=== PATIENT | male | born 1985 | race Caucasian/White ===

== ENCOUNTER 2019-02-26 12:13 | Inpatient (IN) | payer OTHER ==
[~2019-02-26] VITALS: Ht 182.9 cm; Wt 79.2 kg
[2019-02-26 12:46] LABS: BASOPHILS ABSOLUTE AUTO 0.03 K/mm3 (0.00-0.23); BASOPHILS PERCENT AUTO 0 % (0-2); EOSINOPHILS PERCENT AUTO 1 % (0-6); Hematocrit 44.9 % (37.0-53.0); Hemoglobin 15.2 g/dL (13.5-17.5); IMMATURE GRAN ABSOLUTE AUTO 0.02 K/mm3 (0.00-0.10); IMMATURE GRAN PERCENT AUTO 0 % (0-1); LYMPHOCYTES ABSOLUTE AUTO 2.33 K/mm3 (0.84-5.20); LYMPHOCYTES PERCENT AUTO 28 % (21-46); MONOCYTES ABSOLUTE AUTO 0.52 K/mm3 (0.16-1.47); MONOCYTES PERCENT AUTO 6 % (4-13); Mean Corpuscular HGB 30.5 pg (26.0-34.0); Mean Corpuscular HGB Conc 33.9 g/dL (31.5-36.5); Mean Corpuscular Volume 90 fL (80-100); NEUTROPHILS ABSOLUTE AUTO 5.21 K/mm3 (1.96-9.15); NEUTROPHILS PERCENT AUTO 64 % (41-73); Platelet Count 231 K/mm3 (150-400); RDW Coefficient Variation 12.1 % (11.7-14.2); RDW Standard Deviation 39.7 fL (35.1-46.3); Red Blood Cell Count 4.98 M/mm3 (4.30-5.90); White Blood Cell Count 8.21 K/mm3 (4.00-11.30)
[2019-02-26 13:01] LABS: Alanine Aminotransfer (ALT/SGP 20 U/L (12-78); Albumin, Blood 3.6 g/dL (3.4-5.0); Albumin/Globulin Ratio 1.1 (0.8-1.8); Alk Phos 120 U/L (50-136); Anion Gap 9 mmol/L (6-16); Aspartate Aminotrans (AST/SGOT 24 U/L (12-37); Bilirubin, Total 0.4 mg/dL (0.1-1.0); Blood Urea Nitrogen 18 mg/dL (8-24); Bun/Creatinine Ratio 21.2 (12.0-20.0); CO2, Blood 23 mmol/L (21-32); Calcium, Blood 8.2 mg/dL (8.5-10.1); Chloride, Blood 110 mmol/L (98-108); Creatinine, Blood 0.85 mg/dL (0.60-1.20); Globulin, Blood 3.2 g/dL (2.2-4.0); Glomerular Filtration Rate >60 (60-); Glucose, Blood 210 mg/dL (70-99); Potassium, Blood 4.2 mmol/L (3.5-5.5); Sodium, Blood 142 mmol/L (136-145); Total Protein, Blood 6.8 g/dL (6.4-8.2)
[2019-02-26 13:18] LABS: Troponin I 0.764 ng/mL (0.000-0.040)
--- NOTE | 2019-02-26 16:41 | NUR ---
ADMISSION / SHIFT SUMMARY: REPORT RECEIVED AT BEDSIDE FROM SHANKAR Mcdowell, [facility] RN. PT ARRIVED TO PCU-09 AT APPROX 1515. ON ARRIVAL, HE IS DROWSY. AWAKENS ONLY BRIEFLY TO VERBAL STIMULI BEFORE FALLING BACK ASLEEP QUICKLY. PER REPORT, THE PT RECEIVED 2 STENTS TO THE LAD & 1 STENT TO THE CIRC. REGARDING MEDS, HE RECEIVED: 4 MG VERSED, 100 MCG FENTANYL, 600 MG PLAVIX, 325 MG ASA, 600 ML NS IVF, 10,000 UNITS HEPARIN, 8.4 ML BOLUS OF AGGRASTAT & AGGRASTAT CURRENTLY INFUSING AT RATE OF 15ML/HR UNTIL BOTTLE IS COMPLETED. DRIP TO BE D/C'd AT THAT TIME. TR BAND IN PLACE TO R RADIAL ACCESS SITE & INFLATED W/ 11 CC AIR. BAND PLACED AT 1455. IF THE AREA REMAINS FREE OF BLEEDING, BRUISING OR HEMATOMA FORMATION, TR BAND DEFLATION MAY BEGIN AT APPROX 1700. CAP REFILL <3 SEC, PT DENIES N/T. VSS. PT IS NOW MORE ALERT, HAS VOIDED W/O DIFFICULTY USING URINAL. WRIST PRECAUTIONS HAVE BEEN DISCUSSED & THE PT VERBALIZES UNDERSTANDING OF THIS. HE DENIES PAIN OR DISCOMFORT AT THIS TIME & IS A&O x4. WILL CONTINUE TO MONITOR & REPORT OFF TO ONCOMING RN.
--- NOTE | 2019-02-27 | NUR ---
TR BAND REMOVED AND TEGADERM PLACED. SMALL HARD SPOT NOTED ON INSIDE OF WRIST OPPOSITE OF ANGIO SITE. CAP REFIL <3 SEC. PT DENIES PAIN TO AREA. EXTREMITY ELEVATED ON PILLOW. WILL MONITOR.
[2019-02-27 04:25] LABS: BASOPHILS ABSOLUTE AUTO 0.02 K/mm3 (0.00-0.23); BASOPHILS PERCENT AUTO 0 % (0-2); EOSINOPHILS ABSOLUTE AUTO 0.04 K/mm3 (0.00-0.68); EOSINOPHILS PERCENT AUTO 0 % (0-6); Hematocrit 43.3 % (37.0-53.0); Hemoglobin 14.3 g/dL (13.5-17.5); IMMATURE GRAN ABSOLUTE AUTO 0.04 K/mm3 (0.00-0.10); IMMATURE GRAN PERCENT AUTO 0 % (0-1); LYMPHOCYTES ABSOLUTE AUTO 2.52 K/mm3 (0.84-5.20); LYMPHOCYTES PERCENT AUTO 19 % (21-46); MONOCYTES PERCENT AUTO 8 % (4-13); Mean Corpuscular HGB 30.1 pg (26.0-34.0); Mean Corpuscular Volume 91 fL (80-100); Mean Platelet Volume 10.2 fL (9.1-12.4); NEUTROPHILS ABSOLUTE AUTO 9.71 K/mm3 (1.96-9.15); NEUTROPHILS PERCENT AUTO 72 % (41-73); Platelet Count 192 K/mm3 (150-400); RDW Coefficient Variation 12.3 % (11.7-14.2); RDW Standard Deviation 41.1 fL (35.1-46.3); Red Blood Cell Count 4.75 M/mm3 (4.30-5.90); White Blood Cell Count 13.43 K/mm3 (4.00-11.30)
[2019-02-27 04:32] LABS: Anion Gap 8 mmol/L (6-16); Blood Urea Nitrogen 14 mg/dL (8-24); Bun/Creatinine Ratio 16.9 (12.0-20.0); CO2, Blood 26 mmol/L (21-32); Calcium, Blood 8.1 mg/dL (8.5-10.1); Chloride, Blood 106 mmol/L (98-108); Creatinine, Blood 0.83 mg/dL (0.60-1.20); Glomerular Filtration Rate >60 (60-); Glucose, Blood 97 mg/dL (70-99); Sodium, Blood 140 mmol/L (136-145)
--- NOTE | 2019-02-27 05:27 | NUR ---
SHIFT SUMMARY PT SLEEPING IN ROOM COMFORTABLY AT THIS TIME. NO ACUTE CHANGES T/O SHIFT. TR BAND FULLY DELFATED AND REMOVED, WINDOW DRESSING IN PLACE, SITE WNL, NO HEMATOMAS NOTED. CAP REFIL <3 SECS. PT DENIES PAIN TO SITE. RESP EVEN UNLABORED ON RA SATS >95%. DENIES CP. VSS. DENIES OTHER NEEDS. PT HAS BEEN LETHARGIC T/O SHIFT SLEEPING WELL, BUT WAKES EASILY TO VERBAL. CALL LIGHT IN REACH, BED ALARM PLACED DUE TO LETHARGY.
[2019-02-27] MEDS ORDERED: LO-DOSE ASPIRIN81 MG PO (09:40)
[2019-02-27] MEDS ORDERED: ATOR40TA PO (09:41)
[2019-02-27] MEDS ORDERED: CLOP75 PO (09:42)
[2019-02-27] MEDS ORDERED: LISI5 PO (09:43)
[2019-02-27] MEDS ORDERED: METO25ER PO (09:44)
--- NOTE | 2019-02-27 11:31 | NUR ---
DISCHARGE HOME PT DISCHARGE ORDER RECEIVED. BILTERAL IV REMOVED WITH CANNULA INTACT. PT FOUND THE TAPE REMOVEL VERY PAINFUL. PRESSURE DRESSINGS APPLIED WITH COBAN INSTEAD OF TAPE. TALKED WITH PT AND HID BROTHER ABOUT STENT CARE, DIET, METH USE AND FOLLOW UP. TALKED WITH PT ABOUT FINDING A PCP. HE STATED THAT [facility] IS [facility] BUT HAS [facility] ESTABLISHED WITH THEM. REMCOMMENDED TOMORROW [facility] AND START [facility] PROCESS. PERSCRIPTIONS FAXED TO [facility] PER PT REQUEST. CONTINUE POT.
== END 2019-02-27 11:24 | disposition home or self-care (01) | DRG 249 ==
LOC: ER 12:13 → ICUW 13:48 → PCU 15:12
PROVIDERS: Physician Assistant; ADMIT Internal Medicine Interventional Cardiology
PROC: 4A023N7 Measurement of Cardiac Sampling and Pressure, Left Heart, Percutaneous Approach (ICD-10-PCS; principal; 2019-02-26)
PROC: 02713FZ Dilation of Coronary Artery, Two Arteries with Three Intraluminal Devices, Percutaneous Approach (ICD-10-PCS; 2019-02-26)
PROC: B211YZZ Fluoroscopy of Multiple Coronary Arteries using Other Contrast (ICD-10-PCS; 2019-02-26)
DX: I21.09 ST elevation (STEMI) myocardial infarction involving other coronary artery of anterior wall (principal); I25.82 Chronic total occlusion of coronary artery; F17.210 Nicotine dependence, cigarettes, uncomplicated; Z82.49 Family history of ischemic heart disease and other diseases of the circulatory system
CPT/HCPCS: 36415; 80048; 80053; 84484; 85025; 85347; 86850; 86900; 86901; 93005; 93010; 93454; 96374; 99152; 99153; 99285-25; C1725; C1769; C1874; C1887; C1894; C8929; C9600; C9606; J1170; J1644; J1650; J2250; J3010; J3246; J7030; Q9957; Q9967

== ENCOUNTER 2020-03-04 01:22 | Observation (INO) | payer OTHER ==
[~2020-03-04] VITALS: Ht 185.4 cm; Wt 87.5 kg
[~2020-03-04 01:22] MED LIST: ASPIR 8181 M1 PO; ATOR40TA PO; CLOP75 PO; LISI5 PO; METO25ER PO
[2020-03-04 03:18] LABS: BASOPHILS ABSOLUTE AUTO 0.04 K/mm3 (0.00-0.23); BASOPHILS PERCENT AUTO 0 % (0-2); EOSINOPHILS ABSOLUTE AUTO 0.02 K/mm3 (0.00-0.68); EOSINOPHILS PERCENT AUTO 0 % (0-6); Hematocrit 49.7 % (37.0-53.0); Hemoglobin 16.9 g/dL (13.5-17.5); IMMATURE GRAN ABSOLUTE AUTO 0.03 K/mm3 (0.00-0.10); IMMATURE GRAN PERCENT AUTO 0 % (0-1); LYMPHOCYTES ABSOLUTE AUTO 3.07 K/mm3 (0.84-5.20); LYMPHOCYTES PERCENT AUTO 24 % (21-46); MONOCYTES ABSOLUTE AUTO 0.83 K/mm3 (0.16-1.47); MONOCYTES PERCENT AUTO 7 % (4-13); Mean Corpuscular HGB 29.8 pg (26.0-34.0); Mean Corpuscular Volume 88 fL (80-100); Mean Platelet Volume 9.9 fL (9.1-12.4); NEUTROPHILS ABSOLUTE AUTO 8.87 K/mm3 (1.96-9.15); NEUTROPHILS PERCENT AUTO 69 % (41-73); Platelet Count 290 K/mm3 (150-400); RDW Coefficient Variation 12.1 % (11.7-14.2); RDW Standard Deviation 39.2 fL (35.1-46.3); Red Blood Cell Count 5.67 M/mm3 (4.30-5.90); White Blood Cell Count 12.86 K/mm3 (4.00-11.30)
[2020-03-04 03:39] LABS: Magnesium, Blood 2.8 mg/dL (1.6-2.4)
[2020-03-04 03:40] LABS: Alanine Aminotransfer (ALT/SGP 32 U/L (12-78); Albumin/Globulin Ratio 1.3 (0.8-1.8); Alk Phos 142 U/L (50-136); Anion Gap 7 mmol/L (6-16); Aspartate Aminotrans (AST/SGOT 27 U/L (12-37); Bilirubin, Total 1.5 mg/dL (0.1-1.0); Blood Urea Nitrogen 40 mg/dL (8-24); Bun/Creatinine Ratio 15.3 (12.0-20.0); CO2, Blood 29 mmol/L (21-32); CPK Creatine Kinase 444 U/L (39-308); Calcium, Blood 9.1 mg/dL (8.5-10.1); Chloride, Blood 95 mmol/L (98-108); Creatine Kinase MB 4.1 ng/mL (0.0-3.6); Creatine Kinase MB Index 0.9 (0.0-4.0); Creatinine, Blood 2.61 mg/dL (0.60-1.20); Ethanol (Alcohol), Blood, Med <3 mg/dL; Globulin, Blood 3.8 g/dL (2.2-4.0); Glomerular Filtration Rate 30 (60-); Glucose, Blood 97 mg/dL (70-99); Potassium, Blood 4.4 mmol/L (3.5-5.5); Sodium, Blood 131 mmol/L (136-145); Total Protein, Blood 8.8 g/dL (6.4-8.2); Troponin I <0.015 ng/mL (0.000-0.040)
[2020-03-04 04:49] LABS: Source, Urine Clean Catch
[2020-03-04 04:51] LABS: Appearance, Urine Clear (Clear); Bilirubin, Urine Neg (Neg); Blood, Urine Neg (Neg); Color, Urine Amber (P-Yellow); Glucose Qualitative, Urine Neg (Neg); Ketones, Urine Neg (Neg); Leukocyte Esterase, Urine Neg (Neg); Nitrite, Urine Neg (Neg); Protein, Urine 1+ (Neg); Urobilinogen, Urine NORM (Normal)
[2020-03-04 05:02] LABS: U Amphetamine Screen DETECTED; U Barbituate Screen Not Detected; U Benzodiazapine Screen Not Detected; U Buprenorphine Screen Not Detected; U Cannabinoids Screen Not Detected; U Cocaine Screen Not Detected; U Methadone Screen Not Detected; U Methamphetamine Screen DETECTED; U Opiates Screen Not Detected; U Oxycodone Screen Not Detected; U Phencyclidine Screen Not Detected; U Propoxyphene Screen Not Detected
[2020-03-04] MEDS ORDERED: AMOX500 PO (06:00)
--- NOTE | 2020-03-04 06:52 | NUR ---
SHIFT SUMMARY: PT ADMITTED TO MEDICAL FLOOR FROM ER THIS MORNING. AAOX4. VSS. AFEB. T/F W/SBA TO BED. NO C/O PAIN. STATES MUSCLE SPASMS HAVE OVERALL IMPROVED. NSR PER TELE CRANE LADLE PERSON. IV FLUIDS INFUSING ORDERED. WILL CONT TO MONITOR.
[2020-03-04 14:24] LABS: Anion Gap 4 mmol/L (6-16); Blood Urea Nitrogen 33 mg/dL (8-24); Bun/Creatinine Ratio 23.2 (12.0-20.0); CO2, Blood 29 mmol/L (21-32); CPK Creatine Kinase 309 U/L (39-308); Calcium, Blood 7.8 mg/dL (8.5-10.1); Chloride, Blood 107 mmol/L (98-108); Creatinine, Blood 1.42 mg/dL (0.60-1.20); Glomerular Filtration Rate >60 (60-); Glucose, Blood 75 mg/dL (70-99); Potassium, Blood 4.6 mmol/L (3.5-5.5); Sodium, Blood 140 mmol/L (136-145)
--- NOTE | 2020-03-04 16:52 | NUR ---
SHIFT SUMMARY PT HAS BEEN SLEEPING MOST OF THE SHIFT BUT AWAKENS EASILY. NO COMPLAINTS OF PAIN OR NAUSEA THIS SHIFT. IVF INFUSING WITHOUT DIFFICULTY. PT HAS GOOD APPETITE. PT UP TO BATHROOM WITHOUT WEAKNESS THIS AFTERNOON. NO ACUTE CHANGES THIS SHIFT. WILL CONTINUE TO MONITOR AND REPORT TO ONCOMING RN.
--- NOTE | 2020-03-05 04:39 | NUR ---
SHIFT SUMMARY: AAOX4. BRADYCARDIC W/ PULSE LOW 54 TONIGHT. NSR PER TELE MONITOR. PT DENIES SOB, DIZZINESS, OR LIGHTHEADEDNESS WHEN UP. INDEPENDENT IN ROOM. DENIES MUSCLE CRAMPING TONIGHT. GAIT IS STRONG AND STEADY. PT FEELING "MUCH BETTER". IV FLUIDS INFUSING CONT ORDERED. NO ACUTE CHANGES TONIGHT. WILL CONT TO MONITOR.
[2020-03-05 05:17] LABS: BASOPHILS ABSOLUTE AUTO 0.02 K/mm3 (0.00-0.23); BASOPHILS PERCENT AUTO 0 % (0-2); EOSINOPHILS ABSOLUTE AUTO 0.07 K/mm3 (0.00-0.68); EOSINOPHILS PERCENT AUTO 1 % (0-6); Hematocrit 42.5 % (37.0-53.0); Hemoglobin 13.8 g/dL (13.5-17.5); IMMATURE GRAN PERCENT AUTO 0 % (0-1); LYMPHOCYTES ABSOLUTE AUTO 3.12 K/mm3 (0.84-5.20); LYMPHOCYTES PERCENT AUTO 57 % (21-46); MONOCYTES ABSOLUTE AUTO 0.48 K/mm3 (0.16-1.47); MONOCYTES PERCENT AUTO 9 % (4-13); Mean Corpuscular HGB 29.7 pg (26.0-34.0); Mean Corpuscular HGB Conc 32.5 g/dL (31.5-36.5); NEUTROPHILS ABSOLUTE AUTO 1.79 K/mm3 (1.96-9.15); NEUTROPHILS PERCENT AUTO 33 % (41-73); Platelet Count 195 K/mm3 (150-400); RDW Coefficient Variation 12.1 % (11.7-14.2); RDW Standard Deviation 40.6 fL (35.1-46.3); Red Blood Cell Count 4.65 M/mm3 (4.30-5.90); White Blood Cell Count 5.48 K/mm3 (4.00-11.30)
[2020-03-05 05:22] LABS: Mean Corpuscular Volume 91 fL (80-100)
[2020-03-05 05:45] LABS: Anion Gap 4 mmol/L (6-16); Blood Urea Nitrogen 21 mg/dL (8-24); CO2, Blood 24 mmol/L (21-32); CPK Creatine Kinase 220 U/L (39-308); Calcium, Blood 8.2 mg/dL (8.5-10.1); Chloride, Blood 111 mmol/L (98-108); Creatinine, Blood 0.95 mg/dL (0.60-1.20); Glomerular Filtration Rate >60 (60-); Glucose, Blood 93 mg/dL (70-99); Potassium, Blood 5.2 mmol/L (3.5-5.5); Sodium, Blood 139 mmol/L (136-145)
--- NOTE | 2020-03-05 11:56 | NUR ---
PATIENT DISCHARGE: PATIENT DISCHARGED TO HOME THIS SHIFT. MEDICATION RECONCILIATION COMPLETED; NO NEW MEDICATIONS TO REPORT; HOME MEDS RETRIEVED FROM PHARMACY. DISCHARGE EDUCATION COMPLETED QWITH PATIENT. PATIENT INDEPENDENT; PATIENT REFUSED WHEELCHAIR TRANSPORT TO EXIT; PATIENT DEPARTED MEDICAL FLOOR AT 1150. PATIENT DEPARTED [facility] VIA [facility].
== END 2020-03-05 11:56 | disposition home or self-care (01) ==
LOC: ER 01:22 → MEDS 01:23
PROVIDERS: Emergency Medicine; Internal Medicine; ADMIT Internal Medicine
DX: N17.9 Acute kidney failure, unspecified (principal); I25.10 Atherosclerotic heart disease of native coronary artery without angina pectoris; E87.1 Hypo-osmolality and hyponatremia; F17.200 Nicotine dependence, unspecified, uncomplicated; F15.10 Other stimulant abuse, uncomplicated; E86.0 Dehydration; R65.10 Systemic inflammatory response syndrome (SIRS) of non-infectious origin without acute organ dysfunction; Z79.82 Long term (current) use of aspirin; Z79.02 Long term (current) use of antithrombotics/antiplatelets; Z79.899 Other long term (current) drug therapy; I10 Essential (primary) hypertension
CPT/HCPCS: 36415; 76770; 80048; 80053; 82550; 82553; 83690; 83735; 83880; 84484; 85025; 93005; 93010; 96360; 96361; 99284-25; A9270-GY; G0378; G0480; J7030

== ENCOUNTER 2020-11-22 10:19 | Emergency (ER) | payer OTHER ==
[~2020-11-22] VITALS: Ht 182.9 cm; Wt 86.2 kg
[~2020-11-22 10:19] MED LIST changes: +AMOX500 PO
[2020-11-22] MEDS ORDERED: CEPH500 PO (11:42)
== END 2020-11-22 11:48 | disposition home or self-care (01) ==
LOC: ER 10:19
DX: L03.115 Cellulitis of right lower limb (principal); I10 Essential (primary) hypertension; I25.2 Old myocardial infarction; F17.210 Nicotine dependence, cigarettes, uncomplicated; Z79.02 Long term (current) use of antithrombotics/antiplatelets; Z79.82 Long term (current) use of aspirin; Z79.899 Other long term (current) drug therapy
CPT/HCPCS: 99282

== ENCOUNTER 2021-03-17 13:13 | Emergency (ER) | payer OTHER ==
[~2021-03-17] VITALS: Ht 182.9 cm; Wt 86.2 kg
[~2021-03-17 13:13] MED LIST changes: +CEPH500 PO
== END 2021-03-17 15:27 | disposition home or self-care (01) ==
LOC: ER 13:13
DX: M70.21 Olecranon bursitis, right elbow (principal); I10 Essential (primary) hypertension; I25.2 Old myocardial infarction; F17.210 Nicotine dependence, cigarettes, uncomplicated; Z79.82 Long term (current) use of aspirin; Z79.02 Long term (current) use of antithrombotics/antiplatelets; Z79.899 Other long term (current) drug therapy
CPT/HCPCS: 73080; 96372; 99283-25; J1885

== ENCOUNTER 2021-03-29 08:28 | Emergency (ER) | payer OTHER ==
[~2021-03-29] VITALS: Ht 182.9 cm; Wt 90.7 kg
[2021-03-29] MEDS ORDERED: CLIN300 PO (10:00)
[2021-03-29] MEDS ORDERED: TRAM50 PO (10:00)
[2021-03-29 12:40] LABS: Lymphs, Synovial Fluid 11 % (0-15); Monocytes/Macrophages, Synovia 6 % (0-65); Neutrophils, Synovial Fluid 83 % (0-24)
[2021-03-29 12:41] LABS: Appearance, Synovial Fluid Viscous (Clear); Color, Synovial Fluid Red (None-P Yel)
== END 2021-03-29 10:30 | disposition home or self-care (01) ==
LOC: ER 08:28
PROVIDERS: Emergency Medicine
DX: M70.31 Other bursitis of elbow, right elbow (principal); I10 Essential (primary) hypertension; I25.2 Old myocardial infarction; F17.210 Nicotine dependence, cigarettes, uncomplicated; Z79.82 Long term (current) use of aspirin; Z79.02 Long term (current) use of antithrombotics/antiplatelets; Z79.899 Other long term (current) drug therapy
CPT/HCPCS: 10160; 87070; 87075; 87077; 87147; 87186; 87205; 89051; 99283-25; A9270

== ENCOUNTER 2022-02-19 19:52 | Emergency (ER) | payer OTHER ==
[~2022-02-19] VITALS: Ht 182.9 cm; Wt 88.5 kg
[~2022-02-19 19:52] MED LIST changes: +CLIN300 PO; +TRAM50 PO
== END 2022-02-19 20:36 | disposition home or self-care (01) ==
LOC: ER 19:52
DX: Z01.812 Encounter for preprocedural laboratory examination (principal); I25.2 Old myocardial infarction; I10 Essential (primary) hypertension; F17.210 Nicotine dependence, cigarettes, uncomplicated; Z79.899 Other long term (current) drug therapy; Z79.82 Long term (current) use of aspirin; Z79.02 Long term (current) use of antithrombotics/antiplatelets
CPT/HCPCS: 99282

== ENCOUNTER 2025-03-19 18:11 | Inpatient (IN) | payer OTHER ==
[~2025-03-19] VITALS: Ht 182.9 cm; Wt 98.0 kg
[2025-03-19] VITALS (8 sets, daily range): BP systolic 124–152; BP diastolic 89–105
[2025-03-19] MEDS ORDERED: Heparin Sodium 5000 Units/ML 1ML MDV IV ONE (18:30)
[2025-03-19] MEDS ORDERED: NS 1,000 ML IV SCH ×2 (18:30→20:05)
[2025-03-19 18:45] LABS: BASOPHILS ABSOLUTE AUTO 0.04 K/mm3 (0.00-0.23); BASOPHILS PERCENT AUTO 1 % (0-2); EOSINOPHILS ABSOLUTE AUTO 0.13 K/mm3 (0.00-0.68); EOSINOPHILS PERCENT AUTO 2 % (0-6); Hematocrit 46.8 % (37.0-53.0); Hemoglobin 16.1 g/dL (13.5-17.5); IMMATURE GRAN ABSOLUTE AUTO 0.03 K/mm3 (0.00-0.10); IMMATURE GRAN PERCENT AUTO 0 % (0-1); LYMPHOCYTES ABSOLUTE AUTO 2.81 K/mm3 (0.84-5.20); LYMPHOCYTES PERCENT AUTO 42 % (21-46); MONOCYTES ABSOLUTE AUTO 0.54 K/mm3 (0.16-1.47); MONOCYTES PERCENT AUTO 8 % (4-13); Mean Corpuscular HGB Conc 34.4 g/dL (31.5-36.5); Mean Corpuscular Volume 88 fL (80-100); NEUTROPHILS ABSOLUTE AUTO 3.17 K/mm3 (1.96-9.15); NEUTROPHILS PERCENT AUTO 47 % (41-73); NRBC ABSOLUTE 0.00 K/mm3 (0.00-0.02); NRBC Auto 0.0 /100 WBC (0.0-0.2); Platelet Count 306 K/mm3 (150-400); RDW Coefficient Variation 12.3 % (11.7-14.2); RDW Standard Deviation 39.6 fL (35.1-46.3)
[2025-03-19] MEDS ORDERED: Morphine Sulfate 4 MG/1 ML Injection IV ONE (18:50)
[2025-03-19] MEDS ORDERED: Heparin Sodium 1000 Units/ML 10ML MDV ONE ×2 (18:53→19:54)
[2025-03-19] MEDS ORDERED: NS 250 ML IV ONE (18:54)
[2025-03-19] MEDS ORDERED: NiCARdipine HCL 1,000 MCG/5 ML SYR ONE (18:54)
[2025-03-19] MEDS ORDERED: Nitroglycerin 2 MG/20 ML BTL ONE (18:54)
[2025-03-19] MEDS ORDERED: NS 1,000 ML IV ONE ×3 (18:54→19:17)
[2025-03-19] MEDS ORDERED: FentaNYL Citrate 50 MCG/ML 2 ML Injection ONE (18:55)
[2025-03-19] MEDS ORDERED: Midazolam HCl 1MG / ML 2ML Vial ONE (18:56)
[2025-03-19] MEDS ORDERED: Ondansetron HCl 2 MG / ML 2ML Vial IV PRN (19:05)
[2025-03-19 19:10] LABS: Alanine Aminotransfer (ALT/SGP 57.0 U/L (12-78); Albumin, Blood 3.9 g/dL (3.4-5.0); Albumin/Globulin Ratio 1.0 (0.8-1.8); Anion Gap 6.0 mmol/L (3-11); Aspartate Aminotrans (AST/SGOT 40.0 U/L (12-37); Bilirubin, Total 0.4 mg/dL (0.1-1.0); Blood Urea Nitrogen 17.0 mg/dL (8-24); CO2, Blood 30.0 mmol/L (21-32); Calcium, Blood 10.6 mg/dL (8.5-10.1); Chloride, Blood 105.0 mmol/L (98-108); Creatinine, Blood 0.93 mg/dL (0.60-1.20); Globulin, Blood 4.0 g/dL (2.2-4.0); Glucose, Blood 168.0 mg/dL (70-99); Potassium, Blood 4.8 mmol/L (3.5-5.5); Sodium, Blood 136.0 mmol/L (136-145); Total Protein, Blood 7.9 g/dL (6.4-8.2)
[2025-03-19] MEDS ORDERED: Phenylephrine HCl 100 MCG/ML-NS 10MLSYR (1MG/10ML) ONE (19:17)
[2025-03-19] MEDS ORDERED: Acetaminophen/Codeine 300-30 mg PO PRN (20:05)
--- NOTE | 2025-03-19 20:35 | NUR ---
TRANSFER OF CARE/ADMISSION TO ICU PT ARRIVED FROM [facility] AT 2012 ON ICU GURNEY, IN NO APPARENT DISTRESS, ON 4L FACEMASK SATURATION 100%. PT DENIED CHEST PAIN, SOB. SINUS RHYTHM 75 WITH BP OF 143/93. LUNGS CLEAR. NO AB PAIN. NO N/V. DR FELIZ IN ROOM AT [address] READ ECG WHICH HE SAID IS IMPROVED FROM PRE CATH. ONE STENT WAS BLACED IN MID CIRC AND POBA IN OBTUSE. DR FELIZ DOES NOT SEE NEED FOR HOSPITALIST TO COVER THIS PT. REPEAT LABS AND ECG IN AM, WITH ECHO. TR BAND IN PLACE AT 11ML, PUT ON AT 1999 IN [facility]. SITE IS C/D/I/SOFT.
[2025-03-19] MEDS ORDERED: Heparin Sodium,Porcine 5,000 UNIT/0.5 ML SDV SC ONE (22:05)
[2025-03-20] VITALS (17 sets, daily range): BP systolic 102–138; BP diastolic 69–105
[2025-03-20 03:31] LABS: Hematocrit 44.0 % (37.0-53.0); Hemoglobin 15.3 g/dL (13.5-17.5); Mean Corpuscular HGB Conc 34.8 g/dL (31.5-36.5); Mean Corpuscular Volume 87 fL (80-100); NRBC ABSOLUTE 0.00 K/mm3 (0.00-0.02); NRBC Auto 0.0 /100 WBC (0.0-0.2); Platelet Count 284 K/mm3 (150-400); RDW Coefficient Variation 12.4 % (11.7-14.2); RDW Standard Deviation 39.3 fL (35.1-46.3)
[2025-03-20 04:04] LABS: Anion Gap 8 mmol/L (3-11); Blood Urea Nitrogen 17 mg/dL (8-24); CHOL/HDL RATIO 8.6; CO2, Blood 26 mmol/L (21-32); Calcium, Blood 9.4 mg/dL (8.5-10.1); Chloride, Blood 106 mmol/L (98-108); Cholesterol 240 mg/dL (50-200); Creatinine, Blood 0.80 mg/dL (0.60-1.20); Glucose, Blood 139 mg/dL (70-99); HDL Cholesterol 28 mg/dL (>39); LDL/HDL RATIO Unable to Calculate; Low Density Lipoprotein Chol Unable to Calculate mg/dL (0-110); Potassium, Blood 3.8 mmol/L (3.5-5.5); Sodium, Blood 136 mmol/L (136-145); Triglycerides 694 mg/dL (30-140); Very Low Density Lipoprot Chol Unable to Calculate mg/dL (6-28)
--- NOTE | 2025-03-20 04:29 | NUR ---
UPDATE: TR BAND OFF AND TEGADERM FRAME ON. AREA C/D/I/SOFT. PULSES, SENSATION, TEMPERATURE DISTAL TO ACCESS SITE INTACT. STARTED WITH 11ML AT 2000 2ML OUT AT 2050 2ML OUT AT 2200 2ML OUT AT 2300 2ML OUT AT 0000 REST OUT AT 0100 TR BAND OFF AT 0200
--- NOTE | 2025-03-20 04:31 | NUR ---
UPDATE: PT C/O MILD CHEST PAIN 11/21. MEDICATED PER NOV. PT ALSO GIVEN SLEEP MEDICATION PER REQUEST. VSS.
--- NOTE | 2025-03-20 06:48 | NUR ---
SHIFT SUMMARY PT LYING IN BED SLEEPING. AWAKES TO VOICE AND IS ORIENTED TO ALL. PT SAYS CHEST PAIN IS AT 1 OR 2 OUT OF 10. NO SOB. RA. AFEBRILE. SINUS RHTYHM ALL SHIFT WITH STABLE BP. NO BM. 900ML OF URINE OUTPUT. ECG COMPLETED. RIGHT RADIAL ACCESS SITE C/D/I/SOFT WITH TEGADERM ON. BEDSIDE SHIFT REPORT GIVEN TO DAY RN.
[2025-03-20 12:40] LABS: U Amphetamine Screen Not Detected; U Barbituate Screen Not Detected; U Benzodiazapine Screen Not Detected; U Buprenorphine Screen Not Detected; U Cannabinoids Screen Not Detected; U Cocaine Screen Not Detected; U Methadone Screen Not Detected; U Methamphetamine Screen DETECTED; U Opiates Screen DETECTED; U Oxycodone Screen Not Detected; U Phencyclidine Screen Not Detected
[2025-03-20] MEDS ORDERED: Enoxaparin 40 MG/0.4 ML SYR SC SCH (13:00)
--- NOTE | 2025-03-20 14:16 | NUR ---
MORNING SUMMARY THE PT IS DROWSY BUT ARROUSABLE AND ORIENTED X4. HE MOVES IND IN BED AND HAS BEEN WANTING TO SLEEP MAJORITY OF THE MORNING. HE SI WITHDRAWN BUT FOLLOWS COMMANDS AND ANSWERS APPROPRAITELY, BUT ABRUPTLY. THE PT DID RECIEVE AMBIEN DURING THE NIGHT. HE HAS BEEN SR/SA 60'S-70'S ON TELE AND BP IS STABLE. THIS MORNING HE WAS HAVING 3/10 CHEST DISCOMFORT BUT STATED IT WAS TOLERABLE. IT HAS SINCE RESOLVED. CARDIOLOGY AND DR. HUA AWARE. THE PT HAS BEEN ON RA W/ SP02 >93%. THE PT HAS DENIED ANY SOB. A U TOX WAS SENT PER DR. VILLARREAL, W/ POSITIVE RESULTS. HE HAS BEEN USING THE URINAL AT BEDSIDE. NO ACUTE EVENT THIS MORNING. SEE NOTES FOR UPDATES.
--- NOTE | 2025-03-20 17:09 | NUR ---
END OF SHIFT SUMMARY PT IS MORE ALERT THIS AFTERNOON AND STAYING AWAKE LONGER. HE REMAINS A&OX4. 1P ASSIST, USES URINAL AT BEDSIDE, AND MAKES HIS NEEDS KNOWN. THE PT IS SR 60'S-70'S ON TELE, AND BP REMAINS STABLE. ECHO COMPLETED THIS MORNING. HE CHEST PAIN THAT HE WAS HAVING THIS MORNING HAS REMAINS ABSENT. RIGHT RADIAL SITE IS W/O HEMATOMA, TENDERNESS, OR BLEEDING. TEGADERM C/D/I. HE REMAINS ON RA W/ SP02 >93%. HE HAS HAD MULTIPLE VISITORS AND THE PT WAS ABLE TO UPDATE THEM ON CARE. THE PT IS PCU STATUS AND WITH ROOM PENDING IN PCU. NO ACUTE EVENT THIS SHIFT. SEE NOTES FOR UPDATES.
--- NOTE | 2025-03-20 18:11 | NUR ---
ASSUMPTION NOTE: THIS RN TO ASSUME CARE OF PT. PATIENT COMES OVER VIA WHEELCHAIR WITH ALL PERSONAL BELONGINGS. SATTING >92% ON ROOM AIR, VITAL SIGNS STABLE. CONNECTED TO TELE SHOWING SINUS WITH RATE IN 80'S. PT WAS ORIENTED TO ROOM AND CALL LIGHT. BED IS IN LOWEST POSITION, HAS CALL LIGHT WITHIN REACH & STATING NOTHING ELSE IS NEEDED AT THIS TIME.
--- NOTE | 2025-03-20 18:18 | NUR ---
PT TRANSFERED TO PCU 17 VIA W/C. . REPORT PASSED TO BARBY CEDENO. THIS RN WILL REASSUME CARE OF THE PT ONCE THIS RN GET MOVED TO PCU.
[2025-03-21 00:31] VITALS: BP 118/72
[2025-03-21 04:05] VITALS: BP 119/80
[2025-03-21 05:13] LABS: Hematocrit 45.0 % (37.0-53.0); Hemoglobin 15.4 g/dL (13.5-17.5); Mean Corpuscular HGB Conc 34.2 g/dL (31.5-36.5); Mean Corpuscular Volume 87 fL (80-100); NRBC ABSOLUTE 0.00 K/mm3 (0.00-0.02); NRBC Auto 0.0 /100 WBC (0.0-0.2); Platelet Count 262 K/mm3 (150-400); RDW Coefficient Variation 12.3 % (11.7-14.2); RDW Standard Deviation 39.3 fL (35.1-46.3)
[2025-03-21 05:40] LABS: Anion Gap 6.0 mmol/L (3-11); Blood Urea Nitrogen 17.0 mg/dL (8-24); CO2, Blood 29.0 mmol/L (21-32); Calcium, Blood 8.4 mg/dL (8.5-10.1); Chloride, Blood 106.0 mmol/L (98-108); Creatinine, Blood 0.98 mg/dL (0.60-1.20); Glucose, Blood 109.0 mg/dL (70-99); Potassium, Blood 4.3 mmol/L (3.5-5.5); Sodium, Blood 137.0 mmol/L (136-145)
--- NOTE | 2025-03-21 06:28 | NUR ---
SHIFT SUMMARY: PT IS A&OX4, PLEASANT AND COOPERATIVE WITH CARE. SLEPT T/O THE NOC. VSS ON RA. PER TELE, SR 70'S-80'S. DENIES PAIN. RIGHT RADIAL SITE DRESSING WITH SCANT, DRIED DRAINAGE. ARMBOARD REMAINS IN PLACE. TOLERATING A HEART HEALTHY DIET. SBA TO BR. VOIDING INDEPENDENTLY IN URINAL, ADEQUATE AMOUNTS OF CLEAR YELLOW URINE. NO BM THIS SHIFT. PT SHOWERED TONIGHT. REPOSITIONS SELF IN BED. EDUCATED PT ON THE IMPORTANCE OF SMOKING CESSATION. BED IN LOWEST POSITION, CALL LIGHT WITHIN REACH. CALLS APPROPRIATELY AND IS ABLE TO ADVOCATE NEEDS EFFECTIVELY.
[2025-03-21 07:31] VITALS: BP 108/67
[2025-03-21] MEDS ORDERED: JARDIANCE10 MG PO (12:03)
[2025-03-21] MEDS ORDERED: LIPITOR80 MG PO (12:03)
[2025-03-21] MEDS ORDERED: ASPIR 8181 M1 PO (12:03)
[2025-03-21] MEDS ORDERED: Fenofibrate134 MG PO (12:07)
[2025-03-21] MEDS ORDERED: LOSA25 PO (12:07)
[2025-03-21] MEDS ORDERED: EFFIENT10 MG PO (12:08)
[2025-03-21] MEDS ORDERED: NICODERM CQ TOP (12:08)
[2025-03-21] MEDS ORDERED: METO25ER PO (12:08)
[2025-03-21 12:12] VITALS: BP 117/97
== END 2025-03-21 14:00 | disposition home or self-care (01) | DRG 321 ==
LOC: ER 18:11 → ICUE 19:15 → PCU 19:15 → ICUE 20:08 → PCU 03-20 18:05
PROVIDERS: Student in an Organized Health Care Education/Training Program; ADMIT Internal Medicine Cardiovascular Disease
PROC: 027034Z Dilation of Coronary Artery, One Artery with Drug-eluting Intraluminal Device, Percutaneous Approach (ICD-10-PCS; principal; 2025-03-19)
PROC: 02703ZZ Dilation of Coronary Artery, One Artery, Percutaneous Approach (ICD-10-PCS; 2025-03-19)
PROC: B2111ZZ Fluoroscopy of Multiple Coronary Arteries using Low Osmolar Contrast (ICD-10-PCS; 2025-03-19)
DX: T82.855A Stenosis of coronary artery stent, initial encounter (principal); I21.19 ST elevation (STEMI) myocardial infarction involving other coronary artery of inferior wall; I50.22 Chronic systolic (congestive) heart failure; I25.10 Atherosclerotic heart disease of native coronary artery without angina pectoris; F17.210 Nicotine dependence, cigarettes, uncomplicated; F12.90 Cannabis use, unspecified, uncomplicated; Z60.2 Problems related to living alone; I11.0 Hypertensive heart disease with heart failure; F15.10 Other stimulant abuse, uncomplicated; E78.5 Hyperlipidemia, unspecified; Z79.82 Long term (current) use of aspirin; Z79.899 Other long term (current) drug therapy; Z79.2 Long term (current) use of antibiotics; Z95.5 Presence of coronary angioplasty implant and graft; Z71.6 Tobacco abuse counseling; Z91.148 Patient's other noncompliance with medication regimen for other reason
CPT/HCPCS: 36415; 71045; 76937; 80048; 80053; 80061; 83036; 84484; 85025; 85027; 85347; 92941; 93005; 93010; 93458; 93571; 96374; 99152; 99153; 99285-25; A9270; C1725; C1769; C1874; C1887; C1894; C8929; C9606; J0461; J1644; J1650; J2250; J2270; J2371; J3010; J7030; J7050; Q9957; Q9967